=== PATIENT | female | born 1965 | race Caucasian/White ===

== ENCOUNTER → 2017-08-03 | Emergency (ER) | payer OTHER ==
[~2017-08-03] VITALS: Ht 160 cm; Wt 68.0 kg
[~2017-08-03] MED LIST: KETO10TA2 PO; ORPH100T PO; PERCOCET 5/3251 TAB PO; RECTICARE30 GM TP
== END | disposition home or self-care (01) ==
LOC: ER 17:04
DX: S93.491A Sprain of other ligament of right ankle, initial encounter (principal); S83.8X1A Sprain of other specified parts of right knee, initial encounter; W18.49XA Other slipping, tripping and stumbling without falling, initial encounter; Y93.E1 Activity, personal bathing and showering; Y92.091 Bathroom in other non-institutional residence as the place of occurrence of the external cause; Y99.8 Other external cause status

== ENCOUNTER 2017-08-20 11:17 | Outpatient (CLI) | payer OTHER | END 2017-08-20 12:54 | disposition home or self-care (01) | LOC: SONOGRAMA 11:17 | DX: M06.9 Rheumatoid arthritis, unspecified (principal); M79.7 Fibromyalgia; K29.60 Other gastritis without bleeding; G89.4 Chronic pain syndrome; R10.84 Generalized abdominal pain ==

== ENCOUNTER 2017-09-03 09:19 | Outpatient (CLI) | payer OTHER | END 2017-09-03 15:21 | disposition home or self-care (01) | LOC: MRI 09:19 | DX: K76.89 Other specified diseases of liver (principal); N28.1 Cyst of kidney, acquired | CPT/HCPCS: 74183 ==